=== PATIENT | male | born 1950 | race Caucasian/White ===

== ENCOUNTER 2021-03-19 08:01 | Day surgery (SDC) | payer MEDICARE ==
[~2021-03-19 08:01] MED LIST: Lactated Ringers 1,000 ML IV PRN; Sodium Chloride 0.9% 10 ML Syringe FLUSH PRN
[2021-03-19] MEDS ORDERED: fentaNYL 100 MCG/2 ML SDV IV ONE (08:02)
[2021-03-19] MEDS ORDERED: Midazolam 1 MG/ML 2 ML SDV IV ONE (08:02)
[2021-03-19] MEDS ORDERED: acetaZOLAMIDE 500 MG Cap.ER PO ONE (10:00)
--- NOTE | 2021-03-19 15:12 | OR ---
DATE OF OPERATION: 03/19/2021 SURGEON: Becca Chacon MD PREOPERATIVE DIAGNOSES: 1. Visually significant cataract, right eye. 2. Pseudoexfoliation, right eye. POSTOPERATIVE DIAGNOSES: 1. Visually significant cataract, right eye. 2. Pseudoexfoliation, right eye. PROCEDURES PERFORMED: Complex phacoemulsification without intraocular lens placement, right eye. ASSISTANTS: None. ANESTHESIA: Local with sedation. COMPLICATIONS: Complete loss of zonules. BLOOD LOSS: None. IMPLANTS: None. CDE: 12.11. DESCRIPTION OF PROCEDURE: After risks and benefits were reviewed with the patient, consent was obtained in the preoperative area, and the operative eye was marked with a surgical pen. In the preoperative area, a pledget was used to dilate the pupil consisting of a mixture of phenylephrine 10%, cyclopentolate 2%, moxifloxacin 0.5%, and bupivacaine 0.75%. The patient was taken to the operating room, where a time-out was performed, and the patient was placed under monitored anesthesia care. Topical tetracaine was used for anesthesia. The operative eye was prepped and draped for ophthalmic surgery, and the microscope was brought into position and focused. It was initially noted that there was poor dilation and pseudoexfoliation deposits on the lens capsule. A paracentesis incision was made, followed by injection of preservative-free 1% lidocaine into the anterior chamber, and followed by injection of Viscoat into the anterior chamber. A microkeratome blade was then used to make a corneal limbal incision temporarily. Due to the poor dilation, a Malyugin ring at 7.0 mm was used to retract the iris further. A cystotome was used to make the beginning of the capsulorrhexis, which was carried around 360 degrees in a curvilinear fashion using Utrata forceps. A Mccracken cannula with BSS was used to hydrodissect and hydrodelineate the nucleus. It was noted during this time that not only was the cataract extremely dense, which was expected but that the zonules were very very loose especially inferiorly. Although extreme care had been used to minimize any force on the zonules, they at the very minimum amount of force, the zonules were gone inferiorly and the entire bag was very very loose. One crack was performed, but a second crack was difficult due to the zonules in the inferior half being gone. Extreme care was taken to very slowly rotate the nucleus 90 degrees and further sculpting was done. At this point, one quadrant was able to be removed, but the entire bag wanted to come up with the rest of the lens. At this point, the decision was made to attempt to remove the entire nucleus with the capsule and bag because all the zonules were gone. The Malyugin ring was also removed. All but one small to medium size lens fragment was removed by phacoemulsification. At this point, vitreous did start to come into the anterior chamber, and the last fragment was lost into the vitreous. The decision was made not place an anterior chamber lens but to sent the patient to Retina. One 10-0 nylon suture was placed, and the knot was rotated and buried. This eye was patched and shielded, and the patient was taken to recovery in stable condition. /[id number] TRACY/KACI
== END 2021-03-19 11:10 | disposition home or self-care (01) ==
LOC: FB.SDS 08:01
PROVIDERS: ATTEND Ophthalmology
DX: H25.13 Age-related nuclear cataract, bilateral (principal); H40.1422 Capsular glaucoma with pseudoexfoliation of lens, left eye, moderate stage; H35.3131 Nonexudative age-related macular degeneration, bilateral, early dry stage; H01.001 Unspecified blepharitis right upper eyelid; H01.004 Unspecified blepharitis left upper eyelid; H52.13 Myopia, bilateral; H52.223 Regular astigmatism, bilateral; I10 Essential (primary) hypertension; F17.210 Nicotine dependence, cigarettes, uncomplicated; Z79.899 Other long term (current) drug therapy; Z88.0 Allergy status to penicillin
CPT/HCPCS: 00142-QZ; A9270-GY; J2250; J3010

== ENCOUNTER 2022-11-26 06:09 | Day surgery (SDC) | payer MEDICARE ==
[2022-11-26] MEDS ORDERED: Glycopyrrolate 0.2 MG/ML 5 ML MDV IV ONE (06:10)
[2022-11-26] MEDS ORDERED: Propofol 200 MG/20 ML SDV IV ONE (06:10)
[2022-11-26] MEDS ORDERED: Sodium Chloride 0.9% 10 ML Syringe FLUSH PRN (06:15)
[2022-11-26] MEDS ORDERED: Lactated Ringers 1,000 ML IV SCH (06:15)
== END 2022-11-26 09:25 | disposition home or self-care (01) ==
LOC: FB.SDS 06:09
PROVIDERS: ATTEND Surgery
DX: D12.2 Benign neoplasm of ascending colon (principal); K57.30 Diverticulosis of large intestine without perforation or abscess without bleeding; I10 Essential (primary) hypertension; J44.9 Chronic obstructive pulmonary disease, unspecified; Z80.0 Family history of malignant neoplasm of digestive organs; Z79.899 Other long term (current) drug therapy; Z79.4 Long term (current) use of insulin; Z88.0 Allergy status to penicillin; Z91.048 Other nonmedicinal substance allergy status; Z98.890 Other specified postprocedural states; Z87.891 Personal history of nicotine dependence
CPT/HCPCS: 00812; 88305; J2704; J3490; J7120

== ENCOUNTER 2023-04-22 17:02 | Observation (INO) | payer MEDICARE ==
[2023-04-22] MEDS ORDERED: Acetaminophen 500 MG Tab PO ONE (17:27)
[2023-04-22] MEDS ORDERED: Sodium Chloride 0.9% 1,000 ML IV ONE (17:27)
[2023-04-22 17:58] LABS: HEMATOCRIT 39.5 % (38.3-50.1); HEMOGLOBIN 13.4 g/dL (12.9-17.7); MEAN CORPUSCULAR HEMOGLOBIN 36.2 pg (27.0-33.3); MEAN CORPUSCULAR VOLUME 106.5 fL (80.8-98.7); MEAN PLATELET VOLUME 7.7 fL (6.7-11.0); PLATELET COUNT,PLT 183 x10(3)uL (117-477); RED BLOOD CELL COUNT 3.71 x10(6)uL (3.90-5.90); RED CELL DISTRIBUTION WIDTH 15.2 % (12.4-15.0); WHITE BLOOD CELL COUNT,WBC 16.9 x10-3/uL (3.2-10.1)
[2023-04-22 18:02] LABS: BILIRUBIN,URINE NEGATIVE (NEGATIVE); GLUCOSE,URINE 250 mg/dL (NORMAL); KETONES,URINE NEGATIVE (NEGATIVE); LEUKOCYTE ESTERASE,URINE LARGE (NEGATIVE); NITRITE,URINE NEGATIVE (NEGATIVE); OCCULT BLOOD,URINE MODERATE (NEGATIVE); PROTEIN,URINE NEGATIVE (NEGATIVE); UROBILINOGEN,URINE 1 mg/dL (NEGATIVE)
[2023-04-22 18:08] LABS: APPEARANCE,URINE SLIGHTLY CLOUDY (CLEAR); BACTERIA,URINE MODERATE (NS); COLOR,URINE YELLOW (YELLOW); RBC,URINE 0-5 (0-5); SQUAMOUS EPITHELIAL CELLS,UR OCCASIONAL (NS,R,O); WBC,URINE 20-30 (0-5)
[2023-04-22 18:13] LABS: A/G RATIO 0.6; ALANINE AMINOTRANSFERASE,ALT 27 U/L (12-36); ALBUMIN 2.7 g/dL (3.2-4.6); ALKALINE PHOSPHATASE 111 IU/L (56-112); ASPARTATE AMNIOTRANSFERASE,AST 55 IU/L (5-25); BILIRUBIN TOTAL 0.8 mg/dL (0.1-1.3); BLOOD UREA NITROGEN,BUN 18 mg/dL (7-18); CALCIUM 9.9 mg/dL (8.6-10.2); CARBON DIOXIDE,CO2 28 mmol/L (21-32); CREATININE 1.5 mg/dL (0.70-1.30); EST CRCL DRUG DOSING (CG) 42.77 mL/min; ESTIMATED GFR 49 mL/min (>60); GLUCOSE RANDOM 167 mg/dL (80-116); POTASSIUM,K 3.4 mmol/L (3.5-5.3); PROTEIN TOTAL,TP 7.4 g/dL (6.0-8.0); SODIUM,NA 123 mmol/L (135-145)
[2023-04-22 18:16] LABS: CHLORIDE,CL 88 mmol/L (100-110)
[2023-04-22 18:17] LABS: CREATINE KINASE,CK 597 IU/L (60-160)
[2023-04-22 18:29] LABS: BAND PERCENT MAN 8 % (0-6); LYMPHOCYTES PERCENT MAN 12 % (13-37); MONOCYTES PERCENT MAN 10 % (4-12); SEG NEUTROPHILS PERCENT MAN 70 % (46-82)
[2023-04-22] MEDS ORDERED: NS + KCl 20mEq/L 1,000 ML IV SCH (18:45)
[2023-04-22 18:50] LABS: INFLUENZA A NAA NEGATIVE (NEGATIVE); INFLUENZA B NAA NEGATIVE (NEGATIVE); RESPIRATORY SYNCYTIAL VIR NAA NEGATIVE (NEGATIVE)
[2023-04-22 18:52] LABS: CORONAVIRUS COVID-19 NAA NEGATIVE (NEGATIVE)
[2023-04-22] MEDS: Levofloxacin/Dextrose 5%-Water 750 MG in Premix Bag 1 BAG IV SCH (19:39)
[2023-04-22] MEDS ORDERED: Magnesium Sulfate/Water 4 GM in Premix Bag 1 BAG IV ONE (22:12)
[2023-04-22] MEDS: D5 1/2 NS w/ 20 mEq/L KCl 1,000 ML IV SCH (22:16)
[2023-04-22] MEDS ORDERED: Zolpidem 5 MG Tab PO PRN (22:18)
[2023-04-22] MEDS ORDERED: Acetaminophen 325 MG Tab PO PRN (22:18)
[2023-04-22] MEDS ORDERED: Ondansetron 4 MG/2 ML SDV IV PRN (22:18)
[2023-04-22] MEDS ORDERED: Albuterol 90 MCG/6.7 GM Inhaler INH PRN (22:20)
[2023-04-22 22:39] LABS: HEMOGLOBIN A1C 4.9 % (<5.7)
[2023-04-22] MEDS: Enoxaparin 40 MG/0.4 ML Syringe SUBCUT SCH (23:16)
[2023-04-23] MEDS: D5 1/2 NS w/ 20 mEq/L KCl 1,000 ML IV SCH ×2 (06:23→14:29)
[2023-04-23 06:52] LABS: HEMOGLOBIN 11.9 g/dL (12.9-17.7); MEAN CORPUSCULAR HEMOGLOBIN 36.5 pg (27.0-33.3); MEAN CORPUSCULAR HGB CONC 33.9 g/dL (28.7-35.3); MEAN CORPUSCULAR VOLUME 107.6 fL (80.8-98.7); MEAN PLATELET VOLUME 7.4 fL (6.7-11.0); PLATELET COUNT,PLT 161 x10(3)uL (117-477); RED BLOOD CELL COUNT 3.25 x10(6)uL (3.90-5.90); WHITE BLOOD CELL COUNT,WBC 13.2 x10-3/uL (3.2-10.1)
[2023-04-23 07:04] LABS: TROPONIN I 55.5 pg/mL (4.0-60.3)
[2023-04-23 07:05] LABS: BAND PERCENT MAN 1 % (0-6); EOSINOPHILS PERCENT MAN 1 % (0-5); LYMPHOCYTES PERCENT MAN 6 % (13-37); MONOCYTES PERCENT MAN 14 % (4-12); SEG NEUTROPHILS PERCENT MAN 78 % (46-82)
[2023-04-23 07:09] LABS: BLOOD UREA NITROGEN,BUN 15 mg/dL (7-18); BUN/CREATININE RATIO 13.6 (9-20); CALCIUM 8.6 mg/dL (8.6-10.2); CARBON DIOXIDE,CO2 29 mmol/L (21-32); CHLORIDE,CL 98 mmol/L (100-110); CREATININE 1.1 mg/dL (0.70-1.30); EST CRCL DRUG DOSING (CG) 58.73 mL/min; ESTIMATED GFR 71 mL/min (>60); GLUCOSE RANDOM 115 mg/dL (80-116); POTASSIUM,K 4.1 mmol/L (3.5-5.3); SODIUM,NA 132 mmol/L (135-145)
[2023-04-23 07:14] LABS: C-REACTIVE PROTEIN 6.2 mg/dL (0.5-0.9); CREATINE KINASE,CK 483 IU/L (60-160)
[2023-04-23] MEDS ORDERED: TERIPARATIDE 600 MCG/2.4 ML SUBCUT SCH ×2 (09:00→12:00)
[2023-04-23] MEDS ORDERED: VITAMIN D3 PO SCH (09:00)
[2023-04-23] MEDS ORDERED: CALCIUM CARBONATE PO SCH (09:00)
[2023-04-23] MEDS ORDERED: [UNRECOGNIZED DRUG - OTHER] PO SCH (09:00)
[2023-04-23] MEDS: CALCIUM CARBONATE 500 MG PO SCH (10:54)
[2023-04-23] MEDS: CHOLECALCIFEROL 2000 UNIT PO SCH (10:55)
[2023-04-23] MEDS: [UNRECOGNIZED DRUG - OTHER] PO SCH ×2 (11:05→20:17)
[2023-04-23] MEDS: TERIPARATIDE 600 MCG/2.4 ML SUBCUT SCH (12:11)
[2023-04-23] MEDS: Levofloxacin/Dextrose 5%-Water 750 MG in Premix Bag 1 BAG IV SCH (18:33)
[2023-04-23] MEDS: Enoxaparin 40 MG/0.4 ML Syringe SUBCUT SCH (22:12)
[2023-04-24] MEDS: D5 1/2 NS w/ 20 mEq/L KCl 1,000 ML IV SCH ×2 (00:06→09:56)
[2023-04-24 06:42] LABS: BASOPHILS ABSOLUTE AUTO 0.1 x10-3/uL (0.0-0.3); BASOPHILS PERCENT AUTO 0.6 % (0.3-3.8); EOSINOPHILS ABSOLUTE AUTO 0.1 x10-3/uL (0.0-0.6); HEMATOCRIT 36.9 % (38.3-50.1); HEMOGLOBIN 12.6 g/dL (12.9-17.7); LYMPHOCYTES ABSOLUTE AUTO 0.8 x10-3/uL (0.5-4.5); MEAN CORPUSCULAR HEMOGLOBIN 36.7 pg (27.0-33.3); MEAN CORPUSCULAR HGB CONC 34.3 g/dL (28.7-35.3); MEAN CORPUSCULAR VOLUME 107.1 fL (80.8-98.7); MEAN PLATELET VOLUME 7.6 fL (6.7-11.0); MONOCYTES ABSOLUTE AUTO 1.2 x10-3/uL (0.0-1.2); MONOCYTES PERCENT AUTO 12.4 % (5.5-15.2); NEUTROPHILS ABSOLUTE AUTO 7.6 x10-3/uL (1.7-6.9); PLATELET COUNT,PLT 197 x10(3)uL (117-477); RED BLOOD CELL COUNT 3.44 x10(6)uL (3.90-5.90); RED CELL DISTRIBUTION WIDTH 15.1 % (12.4-15.0); WHITE BLOOD CELL COUNT,WBC 9.8 x10-3/uL (3.2-10.1)
[2023-04-24 06:55] LABS: BLOOD UREA NITROGEN,BUN 11 mg/dL (7-18); BUN/CREATININE RATIO 9.2 (9-20); CALCIUM 9.1 mg/dL (8.6-10.2); CARBON DIOXIDE,CO2 29 mmol/L (21-32); CHLORIDE,CL 95 mmol/L (100-110); CREATINE KINASE,CK 218 IU/L (60-160); CREATININE 1.2 mg/dL (0.70-1.30); EST CRCL DRUG DOSING (CG) 53.84 mL/min; ESTIMATED GFR 64 mL/min (>60); GLUCOSE RANDOM 107 mg/dL (80-116); POTASSIUM,K 4.4 mmol/L (3.5-5.3); SODIUM,NA 129 mmol/L (135-145)
[2023-04-24] MEDS: CALCIUM CARBONATE 500 MG PO SCH (08:38)
[2023-04-24] MEDS: [UNRECOGNIZED DRUG - OTHER] PO SCH (08:38)
[2023-04-24] MEDS: CHOLECALCIFEROL 2000 UNIT PO SCH (08:38)
[2023-04-24] MEDS ORDERED: CALCITONIN NAS SCH (09:00)
[2023-04-24] MEDS: TERIPARATIDE 600 MCG/2.4 ML SUBCUT SCH (12:10)
[2023-04-24] MEDS ORDERED: Magnesium Sulfate/Water 4 GM in Premix Bag 1 BAG IV ONE (13:15)
== END 2023-04-24 16:33 | disposition home health service (06) ==
LOC: FB.ED 17:02 → FB.MS 21:13
PROVIDERS: ADMIT Family Medicine; ATTEND Family Medicine
DX: R53.1 Weakness (principal); E87.1 Hypo-osmolality and hyponatremia; M62.82 Rhabdomyolysis; N28.9 Disorder of kidney and ureter, unspecified; E86.0 Dehydration; E83.42 Hypomagnesemia; E87.20 Acidosis, unspecified; N30.00 Acute cystitis without hematuria; I45.10 Unspecified right bundle-branch block; D72.829 Elevated white blood cell count, unspecified; R77.8 Other specified abnormalities of plasma proteins; I10 Essential (primary) hypertension; J44.9 Chronic obstructive pulmonary disease, unspecified; F17.210 Nicotine dependence, cigarettes, uncomplicated; Z20.822 Contact with and (suspected) exposure to COVID-19; Z88.0 Allergy status to penicillin; Z79.899 Other long term (current) drug therapy; Z51.5 Encounter for palliative care; W18.30XA Fall on same level, unspecified, initial encounter
CPT/HCPCS: 0241U; 36415; 71045; 80048; 80053; 81001; 82550; 83036; 83605; 83735; 84484; 85025; 86140; 87040; 87086; 87088; 87186; 93005; 96361; 96365; 96366; 96368; 96372; 96375; 97110-GO; 97165-GO; 99222; 99238; 99285-25; A9270-GY; G0378; J1650; J1956; J3475; J3480; J7030

== ENCOUNTER 2024-01-14 14:13 | Emergency (ER) | payer MEDICARE, OTHER ==
[2024-01-14 15:04] LABS: BASOPHILS ABSOLUTE AUTO 0.1 x10-3/uL (0.0-0.3); BASOPHILS PERCENT AUTO 1.1 % (0.3-3.8); EOSINOPHILS ABSOLUTE AUTO 0.1 x10-3/uL (0.0-0.6); EOSINOPHILS PERCENT AUTO 0.7 % (0.1-6.8); HEMATOCRIT 24.4 % (38.3-50.1); HEMOGLOBIN 7.7 g/dL (12.9-17.7); LYMPHOCYTES ABSOLUTE AUTO 0.9 x10-3/uL (0.5-4.5); LYMPHOCYTES PERCENT AUTO 9.4 % (15.8-45.3); MEAN CORPUSCULAR HEMOGLOBIN 27.1 pg (27.0-33.3); MEAN CORPUSCULAR HGB CONC 31.5 g/dL (28.7-35.3); MEAN CORPUSCULAR VOLUME 86.2 fL (80.8-98.7); MEAN PLATELET VOLUME 7.1 fL (6.7-11.0); MONOCYTES ABSOLUTE AUTO 1.1 x10-3/uL (0.0-1.2); MONOCYTES PERCENT AUTO 10.6 % (5.5-15.2); NEUTROPHILS ABSOLUTE AUTO 7.8 x10-3/uL (1.7-6.9); NEUTROPHILS PERCENT AUTO 78.2 % (40.3-71.8); PLATELET COUNT,PLT 456 x10(3)uL (117-477); RED CELL DISTRIBUTION WIDTH 21.7 % (12.4-15.0)
[2024-01-14 15:09] LABS: BLOOD UREA NITROGEN,BUN 17 mg/dL (7-18); BUN/CREATININE RATIO 11.3 (9-20); CALCIUM 9.1 mg/dL (8.6-10.2); CARBON DIOXIDE,CO2 25 mmol/L (21-32); CHLORIDE,CL 96 mmol/L (100-110); CREATININE 1.5 mg/dL (0.70-1.30); EST CRCL DRUG DOSING (CG) 42.91 mL/min; ESTIMATED GFR 49 mL/min (>60); GLUCOSE RANDOM 108 mg/dL (80-116); POTASSIUM,K 4.5 mmol/L (3.5-5.3); SODIUM,NA 130 mmol/L (135-145)
[2024-01-14 15:14] LABS: INR 1.16 (1.00-1.24); RED BLOOD CELL COUNT 2.83 x10(6)uL (3.90-5.90)
[2024-01-14 15:15] LABS: A/G RATIO 0.5; ALANINE AMINOTRANSFERASE,ALT 17 U/L (12-36); ALBUMIN 2.5 g/dL (3.2-4.6); ALKALINE PHOSPHATASE 122 IU/L (56-112); ASPARTATE AMNIOTRANSFERASE,AST 23 IU/L (5-25); BILIRUBIN TOTAL 0.4 mg/dL (0.1-1.3); PROTEIN TOTAL,TP 7.8 g/dL (6.0-8.0)
[2024-01-14 15:16] LABS: PTT,PARTIAL THROMBOPLSTIN TIME 28.2 SECONDS (24.4-33.2)
[2024-01-14] MEDS: Sodium Chloride 0.9% 250 ML IV SCH (19:47)
[2024-01-14] MEDS: Furosemide 40 MG/4 ML VIAL IVPUSH ONE (20:08)
== END 2024-01-14 23:06 | disposition home or self-care (01) ==
LOC: FB.ED 14:13
DX: D64.9 Anemia, unspecified (principal); R29.6 Repeated falls; I10 Essential (primary) hypertension; J44.9 Chronic obstructive pulmonary disease, unspecified; Z79.899 Other long term (current) drug therapy; Z88.0 Allergy status to penicillin
CPT/HCPCS: 36415; 36430; 80053; 85025; 85610; 85730; 86850; 86900; 86901; 86920; 86922; 96361; 96374; 99283; 99284-25; J1940; J7050; P9016

== ENCOUNTER → 2024-02-04 | Day surgery (SDC) | payer MEDICARE, OTHER ==
[~2024-02-04] MED LIST changes: -Lactated Ringers 1,000 ML IV PRN; +Midazolam 1 MG/ML 2 ML SDV IV ONE; +Propofol 200 MG/20 ML SDV IV ONE
[2024-02-04] MEDS: Lactated Ringers 1,000 ML IV SCH (08:05)
== END ==
LOC: FB.SDS 06:32
PROVIDERS: ATTEND Surgery
DX: K29.50 Unspecified chronic gastritis without bleeding (principal); B96.81 Helicobacter pylori [H. pylori] as the cause of diseases classified elsewhere; K29.80 Duodenitis without bleeding; K44.9 Diaphragmatic hernia without obstruction or gangrene; K57.30 Diverticulosis of large intestine without perforation or abscess without bleeding; I10 Essential (primary) hypertension; F17.210 Nicotine dependence, cigarettes, uncomplicated; Z79.899 Other long term (current) drug therapy
CPT/HCPCS: 00813; 88305; 88342; 99100; J2250; J2704; J7120